=== PATIENT | female | born 1970 | race Caucasian/White ===

== ENCOUNTER → 2019-12-27 12:25 | Outpatient (CLI) | payer MEDICAID, SELFPAY ==
--- NOTE | 2019-12-27 12:31 | US_ITS ---
APPROVED REPORT Exam Type: Lower Extremity Segmental Pressures [employer]: Lyndsey Gunn RVT Indications DECREASED PULSES AND COLD FEET BILATERAL LIMITED HISTORY PT IS MENTALLY HANDICAPPED Pressures/Indices Right Indices Left Indices Brachial 110.00 mmHg Brachial 116.00 mmHg Low Thigh 138.00 mmHg 1.19 Low Thigh Calf 119.00 mmHg 1.03 Calf 114.00 mmHg 0.98 Ankle(PT) 127.00 mmHg 1.09 Ankle(PT) 129.00 mmHg 1.11 Ankle(DP) 108.00 mmHg 0.93 Ankle(DP) 135.00 mmHg 1.16 Digit 101.00 mmHg 0.87 Digit 117.00 mmHg 1.01 Findings RT MATY:1.09 LT MATY:1.11 RT TBI:0.87 LT TBI:1.01 NORMAL PULSES BILATERAL NORMAL WAVEFORMS BILATERAL Conclusion Normal appearing resting noninvasive lower extremity arterial study. Electronically signed by : German Pastor MD 12/27/2019 19:33:54
== END ==
PROVIDERS: PCP Nurse Practitioner Family; Visit Provider Nurse Practitioner Family
DX: R09.89 Other specified symptoms and signs involving the circulatory and respiratory systems (principal); L65.9 Nonscarring hair loss, unspecified
CPT/HCPCS: 93923